=== PATIENT | female | born 1975 | race American Indian/Alaskan Native ===

== ENCOUNTER 2019-04-11 21:01 | Emergency (ER) | payer OTHER ==
[2019-04-11 21:22] VITALS: BP 130/72
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
== END 2019-04-11 21:45 | disposition home or self-care (01) ==
LOC: ED 21:01
DX: M25.512 Pain in left shoulder (principal); Z79.899 Other long term (current) drug therapy; V89.2XXA Person injured in unspecified motor-vehicle accident, traffic, initial encounter; Y93.89 Activity, other specified; Y92.488 Other paved roadways as the place of occurrence of the external cause; Y99.8 Other external cause status
CPT/HCPCS: 99282